=== PATIENT | male | born 1940 | race Caucasian/White ===

== ENCOUNTER → 2020-07-27 | Outpatient (CLI) | payer MEDICARE | END | disposition home or self-care (01) | LOC: LABWHC1 14:19 | PROVIDERS: ATTEND Internal Medicine Interventional Cardiology | DX: E03.9 Hypothyroidism, unspecified (principal) | CPT/HCPCS: 36415; 84439; 84443 ==

== ENCOUNTER 2020-08-01 13:42 | Emergency (ER) | payer MEDICARE ==
[2020-08-01 13:47] VITALS: RESP 18; TEMP 98
[2020-08-01] MEDS ORDERED: SODIUM CHLORIDE 0.9% 500 ML 500 ML IV STA (14:35)
[2020-08-01] MEDS ORDERED: ONDANSETRON 4 MG/2 ML VIAL IVP STA (14:36)
[2020-08-01] MEDS ORDERED: KETOROLAC 15 MG/ML 1 ML VIAL IVP STA (14:36)
[2020-08-01 14:47] LABS: Basophils # (A) 0.1 k/uL (0-0.2); Basophils % (A) 1 %; Eosinophils # (A) 0.3 k/uL (0-0.7); Eosinophils % (A) 5 %; HCT 40.3 % (39.0-53.0); HGB 13.7 gm/dL (13.0-17.5); Lymphocytes # (A) 1.7 k/uL (1.0-4.8); Lymphocytes % (A) 31 %; MCH 31.3 pg (25.0-35.0); MCV 92.1 fL (80.0-100.0); Mean Platelet Volume 7.1; Monocytes # (A) 0.4 k/uL (0-1.0); Monocytes % (A) 7 %; Neutrophils # (A) 2.9 k/uL (1.3-7.7); Neutrophils % (A) 52 %; Platelet Count 204 k/uL (150-450); RBC 4.37 m/uL (4.30-5.90); RDW 12.7 % (11.5-15.5); WBC 5.7 k/uL (3.8-10.6)
[2020-08-01 14:51] LABS: Appearance,Urine Clear (Clear); Bilirubin,Urine Negative (Negative); Blood,Urine Negative (Negative); Color,Urine Light Yellow; Glucose,Urine (UA) Negative (Negative); Ketones,Urine Negative (Negative); Leukocyte Esterase,Urine Moderate (Negative); Nitrite,Urine Negative (Negative); PH, Urine 5.5 (5.0-8.0); Protein,Urine Negative (Negative); RBC,Urine 1 /hpf (0-5); Specific Gravity,Urine 1.012 (1.001-1.035); Urobilinogen,Urine <2.0 mg/dL (<2.0); WBC,Urine 3 /hpf (0-5)
[2020-08-01 14:56] LABS: Albumin 3.9 g/dL (3.5-5.0); Calcium 9.4 mg/dL (8.4-10.2); Potassium 3.9 mmol/L (3.5-5.1); Total Bilirubin 0.4 mg/dL (0.2-1.3); Total Protein 6.5 g/dL (6.3-8.2)
--- NOTE | 2020-08-01 15:10 | ED ---
General Adult HPI - General Source: patient, RN notes reviewed Mode of arrival: ambulatory Limitations: no limitations <Nick Tolentino - Last Filed: 08/01/20 16:32> <Jonathan Tabares - Last Filed: 08/01/20 17:51> - General Chief complaint: Abdominal Pain Stated complaint: Groin Pain Time Seen by Provider: 08/01/20 14:11 - History of Present Illness Initial comments: 79-year-old male with a past medical history of hypertension presents to the emergency room for a chief complaint of right groin pain. Patient reports that for the past few weeks he has had right groin pain. States it worsens when he bends down to pick something up or gets up out of a chair. Patient reports he did have a hernia repaired or 10 years ago and it has never felt the same since. Patient states he has seen the surgeon because of this about 5 years ago and was told everything was fine. Patient denies any urinary symptoms.states last bowel movement was this morning, passing gas normally. Denies vomiting. Patient has no other complaints at this time including shortness of breath, chest pain, nausea or vomiting, headache, or visual changes. (Nick Tolentino) - Related Data Allergies Allergy/AdvReac Type Severity Reaction Status Date / Time No Known Allergies Allergy Verified 08/01/20 13:46 Review of Systems ROS Other: All systems not noted in ROS Statement are negative. <Nick Tolentino - Last Filed: 08/01/20 16:32> ROS Other: All systems not noted in ROS Statement are negative. <Jonathan Tabares - Last Filed: 08/01/20 17:51> ROS Statement: Those systems with pertinent positive or pertinent negative responses have been documented in the HPI. Past Medical History Past Medical History: Hypertension History of Any Multi-Drug Resistant Organisms: None Reported Past Surgical History: Hernia Repair Additional Past Surgical History / Comment(s): prostate surgery Smoking Status: Never smoker Past Alcohol Use History: Occasional Past Drug Use History: None Reported <Nick Tolentino - Last Filed: 08/01/20 16:32> General Exam Limitations: no limitations General appearance: alert, in no apparent distress Head exam: Present: atraumatic, normocephalic, normal inspection Eye exam: Present: normal appearance, PERRL, EOMI. Absent: scleral icterus, conjunctival injection, periorbital swelling ENT exam: Present: normal exam, mucous membranes moist Neck exam: Present: normal inspection, full ROM. Absent: tenderness, meningismus, lymphadenopathy Respiratory exam: Present: normal lung sounds bilaterally. Absent: respiratory distress, wheezes, rales, rhonchi, stridor Cardiovascular Exam: Present: regular rate, normal rhythm, normal heart sounds. Absent: systolic murmur, diastolic murmur, rubs, gallop, clicks GI/Abdominal exam: Present: soft, normal bowel sounds. Absent: distended, tenderness, guarding, rebound, rigid, hernia <Nick Tolentino - Last Filed: 08/01/20 16:32> Course <Jonathan Tabares - Last Filed: 08/01/20 17:51> Vital Signs 08/01/20 08/01/20 13:43 16:39 Temperature 98.0 F Pulse Rate 67 63 Respiratory 18 18 Rate Blood Pressure 150/76 155/74 O2 Sat by Pulse 99 98 Oximetry - Reevaluation(s) Reevaluation #1: 08/01/20 17:51 PA supervision: I personally evaluate this case patient present complaints of some groin abdominal pain. CT shows evidence of some incarcerated fat patient's pain was improved. I did review the imaging. Patient will be discharged with outpatient follow-up I do agree with the assessment and plan at this time (Jonathan Tabares) Medical Decision Making - Lab Data Result diagrams: 08/01/20 14:38 08/01/20 14:38 <Nick Tolentino - Last Filed: 08/01/20 16:32> - Lab Data Result diagrams: 08/01/20 14:38 08/01/20 14:38 <Jonathan Tabares - Last Filed: 08/01/20 17:51> - Medical Decision Making Vitals are stable. CBC CMP unremarkable. Urine is negative for infection. CT abdomen and pelvis with contrast shows a left inguinal and small right inguinal hernia. Right inguinal region appears similar to 2015. Incarcerated fat could be considered within the differential. There is also a loop of bowel anterior to the right lobe of the liver which can be associated with Chilaiditi's syndrome. However no right upper quadrant pain. Patient is actually pain-free at this time and refusing pain medication. He will follow up with a surgeon, referral given. I did educate patient not to lift anything heavy or exacerbate the pain. (Nick Tolentino) - Lab Data Lab Results 08/01/20 08/01/20 08/01/20 Range/Units 14:38 14:38 14:38 WBC 5.7 (3.8-10.6) k/uL RBC 4.37 (4.30-5.90) m/uL Hgb 13.7 (13.0-17.5) gm/dL Hct 40.3 (39.0-53.0) % MCV 92.1 (80.0-100.0) fL MCH 31.3 (25.0-35.0) pg MCHC 34.0 (31.0-37.0) g/dL RDW 12.7 (11.5-15.5) % Plt Count 204 (150-450) k/uL Neutrophils % 52 % Lymphocytes % 31 % Monocytes % 7 % Eosinophils % 5 % Basophils % 1 % Neutrophils # 2.9 (1.3-7.7) k/uL Lymphocytes # 1.7 (1.0-4.8) k/uL Monocytes # 0.4 (0-1.0) k/uL Eosinophils # 0.3 (0-0.7) k/uL Basophils # 0.1 (0-0.2) k/uL Sodium 136 L (137-145) mmol/L Potassium 3.9 (3.5-5.1) mmol/L Chloride 100 (98-107) mmol/L Carbon Dioxide 29 (22-30) mmol/L Anion Gap 7 mmol/L BUN 21 H (9-20) mg/dL Creatinine 0.96 (0.66-1.25) mg/dL Est GFR (CKD-EPI)AfAm 87 (>60 ml/min/1.73 sqM) Est GFR (CKD-EPI)NonAf 75 (>60 ml/min/1.73 sqM) Glucose 121 H (74-99) mg/dL Plasma Lactic Acid Skyler (0.7-2.0) mmol/L Calcium 9.4 (8.4-10.2) mg/dL Total Bilirubin 0.4 (0.2-1.3) mg/dL AST 30 (17-59) U/L ALT 28 (4-49) U/L Alkaline Phosphatase 67 (38-126) U/L Total Protein 6.5 (6.3-8.2) g/dL Albumin 3.9 (3.5-5.0) g/dL Urine Color Light Yellow Urine Appearance Clear (Clear) Urine pH 5.5 (5.0-8.0) Ur Specific [place] 1.012 (1.001-1.035) Urine Protein Negative (Negative) Urine Glucose (UA) Negative (Negative) Urine Ketones Negative (Negative) Urine Blood Negative (Negative) Urine Nitrite Negative (Negative) Urine Bilirubin Negative (Negative) Urine Urobilinogen <2.0 (<2.0) mg/dL Ur Leukocyte Esterase Moderate H (Negative) Urine RBC 1 (0-5) /hpf Urine WBC 3 (0-5) /hpf 08/01/20 Range/Units 14:38 WBC (3.8-10.6) k/uL RBC (4.30-5.90) m/uL Hgb (13.0-17.5) gm/dL Hct (39.0-53.0) % MCV (80.0-100.0) fL MCH (25.0-35.0) pg MCHC (31.0-37.0) g/dL RDW (11.5-15.5) % Plt Count (150-450) k/uL Neutrophils % % Lymphocytes % % Monocytes % % Eosinophils % % Basophils % % Neutrophils # (1.3-7.7) k/uL Lymphocytes # (1.0-4.8) k/uL Monocytes # (0-1.0) k/uL Eosinophils # (0-0.7) k/uL Basophils # (0-0.2) k/uL Sodium (137-145) mmol/L Potassium (3.5-5.1) mmol/L Chloride (98-107) mmol/L Carbon Dioxide (22-30) mmol/L Anion Gap mmol/L BUN (9-20) mg/dL Creatinine (0.66-1.25) mg/dL Est GFR (CKD-EPI)AfAm (>60 ml/min/1.73 sqM) Est GFR (CKD-EPI)NonAf (>60 ml/min/1.73 sqM) Glucose (74-99) mg/dL Plasma Lactic Acid Skyler 1.3 (0.7-2.0) mmol/L Calcium (8.4-10.2) mg/dL Total Bilirubin (0.2-1.3) mg/dL AST (17-59) U/L ALT (4-49) U/L Alkaline Phosphatase (38-126) U/L Total Protein (6.3-8.2) g/dL Albumin (3.5-5.0) g/dL Urine Color Urine Appearance (Clear) Urine pH (5.0-8.0) Ur Specific [place] (1.001-1.035) Urine Protein (Negative) Urine Glucose (UA) (Negative) Urine Ketones (Negative) Urine Blood (Negative) Urine Nitrite (Negative) Urine Bilirubin (Negative) Urine Urobilinogen (<2.0) mg/dL Ur Leukocyte Esterase (Negative) Urine RBC (0-5) /hpf Urine WBC (0-5) /hpf Disposition Is patient prescribed a controlled substance at d/c from ED?: No Time of Disposition: 16:32 <Nick Tolentino - Last Filed: 08/01/20 16:32> <Jonathan Tabares - Last Filed: 08/01/20 17:51> Clinical Impression: Inguinal hernia Disposition: HOME SELF-CARE Condition: Good Additional Instructions: Please follow up with your surgeon. Do not lift anything over 20 pounds and avoid activities that exacerbate the pain. Follow-up with primary care as well. Return to the emergency room for worsening symptoms or worsening pain. Referrals: Saroj Jimenez MD [Primary Care Provider] - 1-2 days Jeff Wilburn MD [STAFF PHYSICIAN] - 1-2 days
--- NOTE | 2020-08-01 16:03 | CT ---
EXAMINATION TYPE: CT abdomen pelvis w con DATE OF EXAM: 08/01/2020 COMPARISON: 09/22/2015 INDICATION: RLQ pain with history of hernia. DLP: 910.2 mGycm, Automated exposure control for dose reduction was used. CONTRAST: 100 mL of Isovue 300. Study performed without Oral Contrast TECHNIQUE: Axial images were obtained from above the diaphragm to the pubic rami in the axial plane a t 5 mm thick sections. Reconstructed images are reviewed on the computer in the coronal plane. FINDINGS: Limited CT sections are obtained the lung bases. The lung bases are clear. CT ABDOMEN: Liver: Normal Spleen: Normal Pancreas: Normal Adrenal glands: The adrenal glands are normal. Gallbladder: Normal Kidneys: No masses are evident. No hydronephrosis is present. No cysts are present. Delayed images were obtained through the kidneys, which remain unremarkable. Aorta: Vascular calcification is within the aorta. Inferior vena cava: Normal. CT PELVIS: Fat containing inguinal hernias present on the left. There may be a right inguinal hernia with mesenteric fat. No loops of bowel are involved. Densities increased within this right inguinal r egion. Consider incarcerated fat within the differential. Findings are [facility] Loops of bowel within the abdomen and pelvis are normal. Diverticulosis without acute diverticulitis is present. The sigmoid colon is redundant. The study is without oral contrast limiting bowel eval uation. There is a loop of bowel anterior to the right lobe of the liver which can be associated with Chilaiditi's syndrome. Appendix: Normal as visualized. Urinary bladder: Normal. Genitourinary structures: Prostate appears within normal limits. Osseous structures: No suspicious lytic or sclerotic lesions. IMPRESSIONS: 1. Left inguinal and small right inguinal hernias. Right inguinal region appears similar to 2014. In carcerated fat could be considered within the differential. 2. There is a loop of bowel anterior to the right lobe of the liver which can be associated with Chi laiditi's syndrome. 3. Normal air-filled appendix
[2020-08-01 16:40] VITALS: BP 155/74; PULSE 63
== END 2020-08-01 16:43 | disposition home or self-care (01) ==
LOC: EC 13:42
DX: K40.90 Unilateral inguinal hernia, without obstruction or gangrene, not specified as recurrent (principal)
CPT/HCPCS: 36415; 80053; 83605; 85025; 81001; 74177; 99284; Q9967

== ENCOUNTER → 2020-10-10 | Outpatient (CLI) | payer MEDICARE | END | disposition home or self-care (01) | LOC: LABPAT 11:37 | PROVIDERS: ATTEND Surgery | DX: U07.1 COVID-19 (principal) | CPT/HCPCS: U0003; C9803 ==

== ENCOUNTER → 2020-10-13 | Outpatient (CLI) | payer MEDICARE | END | disposition home or self-care (01) | LOC: LABPAT 09:38 | PROVIDERS: ATTEND Surgery | DX: Z01.818 Encounter for other preprocedural examination (principal); K40.20 Bilateral inguinal hernia, without obstruction or gangrene, not specified as recurrent | CPT/HCPCS: 36415; 86850; 86900; 86901; 93005 ==

== ENCOUNTER 2020-10-17 10:36 | Day surgery (SDC) | payer MEDICARE ==
[2020-10-12 16:42] VITALS: BMI 24.6
[~2020-10-17 10:36] MED LIST: DEXAMETHASONE SOD PHOSPHATE 4 MG/ML 1 ML VIAL IV ONE; HEPARIN SODIUM,PORCINE 5,000 UNIT/ML 1 ML VIAL SQ ONE; HYDROmorphone 0.5 MG/0.5 ML SYRINGE IVP PRN; LACTATED RINGERS 1,000 ML IV SCH; LIDOCAINE 1% (10MG/ML) FOR IV START INTRADERMA PRN; MIDAZOLAM 2 MG/2 ML VIAL IV PRN; Pre Op ABX Message 1 EACH MISC MISCELLANE ONE
[2020-10-17 11:12] VITALS: RESP 16
[2020-10-17] MEDS: ONDANSETRON 4 MG/2 ML VIAL IVP ONE ×2 (11:24→14:23)
[2020-10-17] MEDS ORDERED: NEOSTIGMINE 1 MG/ML 10 ML VIAL ONE (12:19)
[2020-10-17] MEDS ORDERED: PROPOFOL 10 MG/ML 20 ML VIAL IV ONE (12:19)
[2020-10-17] MEDS ORDERED: MIDAZOLAM 2 MG/2 ML VIAL ONE (12:19)
[2020-10-17] MEDS ORDERED: PHENYLEPHRINE-0.9% NACL SYG 1 MG/10 ML SYRINGE ONE (12:19)
[2020-10-17] MEDS ORDERED: SUCCINYLCHOLINE CHLORIDE 100 MG/5 ML SYR IV ONE (12:19)
[2020-10-17] MEDS ORDERED: fentaNYL (PF) 50 MCG/ML 2 ML AMP ONE (12:19)
[2020-10-17] MEDS ORDERED: GLYCOPYRROLATE 0.2 MG/ML 2 ML VIAL ONE (12:19)
[2020-10-17] MEDS ORDERED: ROCURONIUM 10 MG/ML (10 ML VIAL) IV ONE (12:19)
[2020-10-17] MEDS ORDERED: LIDOCAINE 1% INJ 10MG/ML (20 ML MDV) ONE (12:19)
[2020-10-17] MEDS ORDERED: LIDOCAINE 1%-EPI 1:100,000 20 ML VIAL SQ ONE ×3 (12:31→14:06)
--- NOTE | 2020-10-17 14:18 | P.OP ---
Date of Procedure: 10/17/20 Preoperative Diagnosis: Bilateral inguinal hernia Postoperative Diagnosis: Bilateral inguinal hernia Procedure(s) Performed: Robotic inguinal hernia repair with mesh Robotic Right inguinal hernia mesh explantation Anesthesia: YESSICA Surgeon: Meño Mcnair Pathology: other (Gross specimen of mesh) Condition: stable Disposition: same day Indications for Procedure: 79-year-old male presents today for bilateral inguinal hernia repair. He has had right inguinal pain for many years that has worsened recently. He has had a previous right inguinal hernia repair. On workup, the patient was noted to have a bilateral inguinal hernia. Plan is for repair today. Risks, benefits and alternatives to the procedure were provided to the patient. The patient did provide consent prior to attending the operating suite. Operative Findings: Right inguinal hernia, direct and indirect. Previous mesh noted and removed. Direct left inguinal direct hernia Description of Procedure: The patient was brought to the operating suite and placed in supine position on the operating table. General endotracheal anesthesia was induced. Arms were then tacked to the sides bilaterally and all pressure points were padded. SCDs were also placed in his bilateral lower extremities and working throughout the case. Preoperative antibiotics were given prior to the incision. A timeout was performed with all team members in agreement with correct patient, procedure and location. A super umbilical incision was made approximately 2070 superior to the pubic symphysis. The abdomen was then entered under direct visualization with the Visiport. At this point, pneumoperitoneum was achieved. 2 additional incisions were made approximately 11 cm lateral to the super umbilical incision and a millimeter trochars were then placed. The patient was then placed in Trendelenburg position and the hernia sites were clearly visualized bilaterally. The left side was noted to be a direct hernia and the right side was noted to be an indirect and direct hernia. The right side was also noted to have scarring in place from the patient's previous hernia repair. The robot was then docked appropriately. Incision was then made just lateral to the medial umbilical ligament on the right side with monopolar scissors and the peritoneal flap was created and was taken down towards Darien's ligament. During this dissection, the previous mesh was encountered. The previous mesh was noted to be bunched over the pubic symphysis. Careful and meticulous dissection was used to dissect the mesh from the surrounding structures. This was done both bluntly and sharply. Hemostasis was maintained throughout this process. The entire mesh was then explanted. The flap was then extended laterally. Attention was then turned to the indirect and direct inguinal hernia. The sac was freed from the cord and attention was pain to the cord structures. At this point, the indirect hernia was reduced. Once the entire space was appropriate lead dissected out, attention was then turned towards the left side. Incision was then made just lateral to the medial umbilical ligament on the left side with monopolar scissors and the peritoneal flap was created and was taken down towards Darien's ligament. The flap was then extended laterally. Attention was then turned towards the direct internal hernia. The sac was freed from surrounding structures. Once this was completed, the laparoscopic Parietex progrip meshes were placed and unrolled over the hernia sites. Once appropriately in place, the peritoneal flaps were closed using a running 20V lock suture. Once this was completed, we removed all robotic instruments and undocked the robot. The ex planted mesh was then removed from the abdomen and handed off as specimen. The super umbilical fascial incision was closed with an 0 Vicryl suture using the Gregg Crespo device. This was done under laparoscopic guidance. All incisions were then closed with 4-0 Vicryl subcuticular suture. The patient was awakened in the operating suite and taken to postanesthesia care unit in stable condition.
[2020-10-17 14:27] VITALS: TEMP 97.7
[2020-10-17] MEDS ORDERED: HYDROcodone/APAP 5-325MG 1 EACH TAB ONE (16:15)
[2020-10-17] MEDS ORDERED: HYDROcodone/APAP 5-325MG 1 EACH TAB PO ONE (16:17)
[2020-10-17 18:37] VITALS: BP 181/82; PULSE 64
== END 2020-10-17 18:43 | disposition home or self-care (01) ==
LOC: OR 10:36
PROVIDERS: ATTEND Surgery
DX: K40.91 Unilateral inguinal hernia, without obstruction or gangrene, recurrent (principal); K40.90 Unilateral inguinal hernia, without obstruction or gangrene, not specified as recurrent; I10 Essential (primary) hypertension; E78.00 Pure hypercholesterolemia, unspecified; Z98.890 Other specified postprocedural states; Z97.2 Presence of dental prosthetic device (complete) (partial); Z98.49 Cataract extraction status, unspecified eye; Z82.49 Family history of ischemic heart disease and other diseases of the circulatory system; Z80.41 Family history of malignant neoplasm of ovary; Z80.8 Family history of malignant neoplasm of other organs or systems; Z87.891 Personal history of nicotine dependence; Z79.82 Long term (current) use of aspirin; Z79.899 Other long term (current) drug therapy
CPT/HCPCS: 49651; 49650; C1781; J2250; J1644; J1100; J2710; J0690; J2405; J2001; J3010; J2370; J0330; J2704; J1170; 36415; 86850; 86900; 86901

== ENCOUNTER → 2023-12-10 | Outpatient (CLI) | payer MEDICARE ==
--- NOTE | 2023-12-11 13:08 | NM ---
EXAMINATION TYPE: NM DatScan Brain SPECT DATE OF EXAM: 12/10/2023 COMPARISON: NONE HISTORY: Tremor TECHNIQUE: 10 drops of Lugol's solution was administered 1 hour prior to injection as a thyroid bloc madalyn agent. After the administration of 5.08 mCi I-123 Ioflupane DaTscan. Images obtained 3 hours p ost injection. SPECT images of the brain were acquired with axial and coronal reconstructions. FINDINGS: The axial SPECT images demonstrate normal background activity and normal symmetric activity within the bilateral striata. IMPRESSION: 1. No diagnostic evidence suggestive of idiopathic Parkinson's disease or Parkinsonian syndrome.
== END | disposition home or self-care (01) ==
LOC: RADNMMAIN 08:51
PROVIDERS: ATTEND Psychiatry & Neurology Neurology
DX: G25.0 Essential tremor (principal)
CPT/HCPCS: 78803; A9584

== ENCOUNTER → 2024-08-05 | Outpatient (CLI) | payer MEDICARE ==
--- NOTE | 2024-08-18 15:01 | MR ---
EXAMINATION TYPE: MR knee RT wo con DATE OF EXAM: 08/05/2024 COMPARISON: X-ray 07/27/2024 HISTORY: right knee pain TECHNIQUE: Multiplanar, multisequence imaging of the right knee is performed without IV contrast. FINDINGS: MEDIAL MENISCUS: Is extensive abnormal signal involving the posterior horn and body of the medial men iscus compatible with a macerated tear. LATERAL MENISCUS: Intrasubstance signal in the body of the meniscus compatible with tear. CRUCIATE LIGAMENTS: Poor definition of the distal fibers of the ACL at the tibial attachment likely o n the basis of a degenerative tear. PCL normal. COLLATERAL LIGAMENTS: The medial collateral ligament and lateral collateral ligament complex are inta ct and unremarkable. EXTENSOR MECHANISM: Visualized quadriceps and patellar tendons are intact. EFFUSION: There is a small to moderate suprapatellar bursal fluid collection. POPLITEAL CYST: There is a popliteal fossa cyst measuring 1.0 x 1.4 x 1.9 cm. TRICOMPARTMENT SPACES: There is severe tricompartment joint osteoarthritis most marked involving the medial compartment. Marginal spurring but no erosive changes. CARTILAGE: There is maintenance of the patellar cartilage but there is an areas of increased signal n ear the apex of the patella compatible grade II chondromalacia. There is a more extensive loss of cartilage involving the medial femoral articular surface and tibial articular surface compatible with grade III chondromalacia. There is a grade II chondromalacia invol ving the articular lateral femoral and tibial cartilage. BONE MARROW SIGNAL: Circular area of abnormal signal involving the posterior lateral femoral condyle likely represents an area of marrow edema and early osteochondritis. No free fragment. Marrow edema involving the lateral tibial plateau is favored to represent reactive marrow edema due t o the arthritic changes. OTHER: There is subcutaneous edema. IMPRESSION: 1. 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 There is a macerated posterior horn and body medial meniscal tear. 2. Degenerative tear body lateral meniscus. 3. Chondromalacia involving the tricompartment joint space is most marked along the medial compartmen t. 4. Degenerative ACL tear near the tibial attachment. 5. Small popliteal fossa cyst. 6. Marrow edema along the lateral tibial plateau is favored to represent reactive marrow edema due to the post arthritic changes. No fracture line. No significant depression identified. 7. Moderate suprapatellar bursal fluid collection. [facility], , 08/18/2024 2:59 PM
== END | disposition home or self-care (01) ==
LOC: RADMRIMAIN 11:02
PROVIDERS: ATTEND Orthopaedic Surgery
DX: M25.561 Pain in right knee

== ENCOUNTER → 2024-08-31 | Outpatient (CLI) | payer MEDICARE ==
[2024-08-31 15:16] LABS: Basophils # (A) 0.06 X 10*3/uL (0.00-0.10); Basophils % (A) 0.9 %; Eosinophils # (A) 0.25 X 10*3/uL (0.04-0.35); Eosinophils % (A) 3.8 %; HCT 45.3 % (39.6-50.0); HGB 15.2 g/dL (13.0-17.0); Lymphocytes # (A) 1.78 X 10*3/uL (0.90-5.00); Lymphocytes % (A) 27.1 %; MCH 31.3 pg (27.0-32.0); MCHC 33.6 g/dL (32.0-37.0); MCV 93.2 FL (80.0-97.0); Mean Platelet Volume 10.1 FL (9.5-12.2); Monocytes # (A) 0.54 X 10*3/uL (0.20-1.00); Monocytes % (A) 8.2 %; NRBC Per 100 WBC 0 X 10*3/uL (0.00-0.01); Neutrophils # (A) 3.92 X 10*3/uL (1.80-7.70); Neutrophils % (A) 59.7 %; Platelet Count 228 X 10*3/uL (140-440); RBC 4.86 X 10*6/uL (4.40-5.60); RDW 13.3 % (11.5-14.5); WBC 6.57 X 10*3/uL (4.50-10.00)
[2024-08-31 15:38] LABS: Anion Gap 11.3 mmol/L (4.00-12.00); Carbon Dioxide 27.7 mmol/L (21.6-31.8); Potassium 4.4 mmol/L (3.5-5.5)
== END | disposition home or self-care (01) ==
LOC: LABPAT 10:05
PROVIDERS: ATTEND Orthopaedic Surgery
DX: Z01.812 Encounter for preprocedural laboratory examination (principal); M23.91 Unspecified internal derangement of right knee
CPT/HCPCS: 80051; 85025

== ENCOUNTER 2024-09-15 10:00 | Day surgery (SDC) | payer MEDICARE ==
--- NOTE | 2024-09-14 21:14 | HP ---
HISTORY AND PHYSICAL Surgery is scheduled for 09/15/2024. HISTORY OF PRESENT ILLNESS: Ricardo Swann is an 83-year-old gentleman seen with progressive right knee pain. After having treatment options discussed, he elected to proceed with right knee arthroscopy. Consent regarding the procedure was obtained. Cardiac clearance was provided by Dr. Annabel Jimenez. PAST MEDICAL HISTORY: Cardiovascular disease, hypertension, hyperlipidemia. PAST SURGICAL HISTORY: Herniorrhaphy . DAILY MEDICATIONS: 1. Amlodipine. 2. Aspirin. 3. Atorvastatin. 4. Lisinopril. 5. Metoprolol. SOCIAL HISTORY: He denies tobacco use. ALLERGIES: None known. PHYSICAL EVALUATION OF THE RIGHT KNEE: Range of motion is -2/3 to 120 degrees. Moderate effusion. Tenderness along the medial and lateral joint lines. Positive medial Yen's. Positive lateral Yen's. Ligaments stable. Hip rotation without pain. Distal neurovascular exam is intact. IMAGING STUDIES: Radiographs of right knee revealed moderate osteoarthritis. MRI of right knee revealed medial and lateral meniscal tears along with osteoarthritic changes. IMPRESSION: 1. Internal derangement of right knee with medial and lateral meniscal tears. 2. Hypertension. 3. Hyperlipidemia. 4. Cardiovascular disease. PLAN: Right knee arthroscopy with partial medial/lateral meniscectomy and debridement. MMODL / IJN: [id number] /
[~2024-09-15 10:00] MED LIST changes: -DEXAMETHASONE SOD PHOSPHATE 4 MG/ML 1 ML VIAL IV ONE; -HEPARIN SODIUM,PORCINE 5,000 UNIT/ML 1 ML VIAL SQ ONE; -LACTATED RINGERS 1,000 ML IV SCH; -LIDOCAINE 1% (10MG/ML) FOR IV START INTRADERMA PRN; -MIDAZOLAM 2 MG/2 ML VIAL IV PRN; -Pre Op ABX Message 1 EACH MISC MISCELLANE ONE
[2024-09-15] MEDS: IV FLUID CONTINUATION 1,000 ML IV ONE (10:16)
[2024-09-15] MEDS: ONDANSETRON 4 MG/2 ML VIAL IVP ONE (10:48)
[2024-09-15] MEDS: LACTATED RINGERS 1,000 ML IV SCH (10:48)
[2024-09-15] MEDS: DEXAMETHASONE SOD PHOSPHATE 4 MG/ML 1 ML VIAL IV ONE (10:48)
[2024-09-15] MEDS: BUPIVACAINE (PF) 0.25% 30 ML VIAL MISCELLANE ONE ×2 (10:51→11:27)
[2024-09-15] MEDS ORDERED: ePHEDrine 50 MG/ML 1 ML VIAL ONE (10:52)
[2024-09-15] MEDS ORDERED: PROPOFOL 10 MG/ML 20 ML VIAL IV ONE (10:52)
[2024-09-15] MEDS ORDERED: GLYCOPYRROLATE 0.2 MG/ML 2 ML VIAL ONE (10:52)
[2024-09-15] MEDS ORDERED: LIDOCAINE 1% INJ 10MG/ML (20 ML MDV) ONE (10:52)
[2024-09-15] MEDS ORDERED: fentaNYL (PF) 50 MCG/ML 2 ML AMP ONE (10:52)
[2024-09-15 10:59] LABS: Glucose,Whole Blood 144 mg/dL (70-110)
[2024-09-15] MEDS: hydrALAZINE HCL 20 MG/ML 1 ML VIAL IVP STA (11:51)
[2024-09-15 11:56] VITALS: TEMP 96.8
--- NOTE | 2024-09-15 11:57 | P.OP ---
Date of Procedure: 09/15/24 Preoperative Diagnosis: Internal derangement right knee Postoperative Diagnosis: 1. Tear medial lateral meniscus right knee 2. Grade IV chondromalacia medial femoral condyle right knee 3. 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 Reactive synovitis medial, lateral and suprapatellar compartments right knee Procedure(s) Performed: 1. Arthroscopic partial medial and lateral meniscectomy right knee 2. Arthroscopic microfracture medial femoral condyle right knee 3. Arthroscopic microfracture lateral tibial plateau right knee 4. Arthroscopic partial synovectomy medial, lateral and suprapatellar compartments right knee Anesthesia: DENISEA, local Surgeon: Chirag Morgan Estimated Blood Loss (ml): 6 Pathology: none sent Condition: stable Disposition: PACU Indications for Procedure: 83-year-old patient seen a progressive right knee pain. After having treatment options discussed, he elected to proceed with arthroscopy. Operative Findings: See description of procedure Description of Procedure: Patient was taken to the operative suite. Patient underwent a general anesthetic by the department of anesthesia. Patient was given preoperative antibiotics. The right lower extremity was placed in a well-padded arthroscopic leg griffin. The right leg was prepped and draped in the normal sterile orthopedic fashion. A lateral parapatellar and suprapatellar incision was made. Trochars were inserted. Arthroscopy was initiated. Suprapatellar pouch revealed diffuse thick reactive synovitis. The patellofemoral joint appeared to articular congruently. There was grade II/III chondromalacia patella with no significant osteochondral tears present. The scope was guided into the medial gutter. No loose bodies or plica were identified. The scope was then guided into the medial compartment. A medial parapatellar incision was made. Trocar inserted followed by probe. There was a complex tear posterior horn medial meniscus. There were grade III chondromalacia changes medial femoral condyle with osteochondral flap tears present. There were grade III chondromalacia of the medial tibial plateau. There was some thick reactive synovitis anteriorly. I performed a partial medial meniscectomy getting down to stable meniscal tissue. I performed a chondroplasty of the medial femoral condyle getting down to stable osteochondral tissue. I performed a partial synovectomy decompressing the reactive synovitis. I did note an area of exposed bone along the medial aspect medial femoral condyle measuring just under centimeter. I introduced a microfracture awl I performed a microfracture to the area of exposed bone penetrating the bone with resultant bleeding at the microfracture site. The residual meniscus was stable. The residual osteochondral surface was stable. There was good decompression of the synovitis. Scope and probe were then guided into the intercondylar notch. Cruciates were identified, probed and found to be stable. The scope and probe were then guided into lateral compartment. There was a complex tear involving the posterior and mid body lateral meniscus. There was a area of grade IV chondromalacia exposed bone lateral tibial plateau measuring just over a centimeter. There was reactive synovitis anteriorly. There was no chondromalacia involving the lateral femoral condyle. I performed a partial lateral meniscectomy getting down to stable meniscal tissue. I performed a partial synovectomy decompressing the reactive synovitis. I now introduced a microfracture awl and I performed a microfracture to the area of exposed bone lateral tibial plateau penetrating the bone with resultant bleeding at the microfracture site. The residual meniscus was stable. There was good decompression of the synovitis. The scope was in guided back into the suprapatellar compartment. I introduced a motorized shaver into the supra compartment. I debrided some piecemeal fragments of meniscus I encountered. I performed a partial synovectomy. The shaver was removed. There was good decompression of the synovitis. Instruments were now removed from the joint. The joint was infiltrated with .25% Marcaine. Steri-Strips were applied to the portal sites. Sterile dressings were applied. The patient was placed into a ADITYA hose. No tourniquet was utilized. The patient was awakened, transferred to a bed and taken to recovery stable satisfactory condition.
[2024-09-15 12:37] VITALS: RESP 20
[2024-09-15 13:30] VITALS: BP 160/80; PULSE 66
== END 2024-09-15 13:40 | disposition home or self-care (01) ==
LOC: OR 10:00
PROVIDERS: ATTEND Orthopaedic Surgery